=== PATIENT | female | born 1955 | race American Indian/Alaskan Native ===

== ENCOUNTER 2018-02-08 01:16 | Inpatient (IN) | payer OTHER ==
[~2018-02-08] VITALS: Ht 165.1 cm; Wt 95.1 kg
[2018-02-08 01:28] VITALS: Ht 165.1 cm; Wt 95.1 kg
[2018-02-08 02:36] LABS: UA SPECIFIC GRAVITY >=1.030 (1.005-1.035); microscopic required? YES; urine erythrocyte NEGATIVE (NEGATIVE)
[2018-02-08 03:02] LABS: PLATELET COUNT 258 x10^3mcL (130-400)
[2018-02-08 03:16] LABS: RED CELL DISTRIBUTION WIDTH 22.1 % (11.5-14.5)
[2018-02-08 03:27] LABS: T3 TOTAL 0.55 ng/mL
[2018-02-08 03:48] LABS: ERYTHROCYTE SED RATE 8 mm/hr (0-30)
[2018-02-08 04:15] LABS: BAND NEUTROPHIL 3 % (0-10); METAMYELOCTE 1 % (0-2); MONOCYTE 10 % (0-7); MYELOCYTE 1 % (0-2); SEGMENTED NEUTROPHILS 80 % (37-75); rbc morphology (normal/abnorm) ABNORMAL (NORMAL)
[2018-02-08 04:16] LABS: PLATELET MORPHOLOGY LARGE PLATELET SEEN; ovalocyte/elliptocyte 1+; target cell (codocyte) 2+
[2018-02-08 04:42] LABS: CK-MB 1.4 ng/mL (0-3.6)
[2018-02-08 05:14] LABS: C REACTIVE PROTEIN 6.9 mg/dL (<=0.9)
[2018-02-08 05:32] LABS: CALCIUM 8.9 mg/dL (8.5-10.1); CARBON DIOXIDE 21.3 mmol/L (21-32); CREATININE SERUM 2.7 mg/dL (0.6-1.0); FREE T4 1.53 ng/dL (0.76-1.46)
[2018-02-08] MEDS ORDERED: DOXEPIN HCL10 MG PO (05:37)
[2018-02-08] MEDS ORDERED: PANTOPRAZOLE SO40 M1 PO (05:37)
[2018-02-08] MEDS ORDERED: ACETAMINOPHEN A1 TAB PO (05:38)
[2018-02-08] MEDS ORDERED: GAS RELIEF 8080 MG PO (05:38)
[2018-02-08] MEDS ORDERED: CALCIUM 600600 M3 PO (05:39)
[2018-02-08 05:40] LABS: ALBUMIN 2.4 g/dL (3.4-5.0); TOTAL PROTEIN, SERUM 5.2 g/dL (6.4-8.2)
[2018-02-08 05:41] LABS: BILIRUBIN TOTAL 16.1 mg/dL (0.20-1.00)
[2018-02-08] MEDS ORDERED: QUEP PO (05:41)
[2018-02-08] MEDS ORDERED: LACTULOSE10 GM/152 PO (05:41)
[2018-02-08] MEDS ORDERED: LEVAQUIN750 MG PO (05:42)
[2018-02-08] MEDS ORDERED: ALDACTONE50 MG PO (05:42)
[2018-02-08] MEDS ORDERED: PROPRANOLOL HCL20 MG PO (05:42)
[2018-02-08] MEDS ORDERED: ONDANSETRON4 M3 PO (05:43)
[2018-02-08] MEDS ORDERED: HYDROXYZINE HYD25 MG PO (05:44)
[2018-02-08 06:50] VITALS: BP 119/43
[2018-02-08 09:53] LABS: CALCIUM 9.7 mg/dL (8.5-10.1); CARBON DIOXIDE 22.6 mmol/L (21-32); CREATININE SERUM 2.5 mg/dL (0.6-1.0)
[2018-02-08 09:58] LABS: POTASSIUM SERUM 6.8 mmol/L (3.5-5.1)
[2018-02-08 10:08] VITALS: BP 120/36
[2018-02-08 12:05] VITALS: BP 104/35
[2018-02-08 16:28] VITALS: BP 94/41
[2018-02-08 17:28] VITALS: BP 114/50
[2018-02-08 20:00] VITALS: BP 111/55
[2018-02-08 21:31] LABS: CALCIUM 10.4 mg/dL (8.5-10.1); CARBON DIOXIDE 18.7 mmol/L (21-32); CREATININE SERUM 2.6 mg/dL (0.6-1.0)
[2018-02-08 21:33] LABS: POTASSIUM SERUM 6.4 mmol/L (3.5-5.1)
[2018-02-09] VITALS (8 sets, daily range): BP systolic 93–115; BP diastolic 45–65
[2018-02-09 06:39] LABS: CALCIUM 9.8 mg/dL (8.5-10.1); CARBON DIOXIDE 17.6 mmol/L (21-32); CREATININE SERUM 2.6 mg/dL (0.6-1.0); MAGNESIUM 2.8 mg/dL (1.8-2.4); PHOSPHOROUS 3.9 mg/dL (2.5-4.9)
[2018-02-09 06:45] LABS: POTASSIUM SERUM 6.3 mmol/L (3.5-5.1)
[2018-02-10 05:22] VITALS: BP 118/49
[2018-02-10 07:07] LABS: CALCIUM 8.8 mg/dL (8.5-10.1); CARBON DIOXIDE 17.7 mmol/L (21-32); CREATININE SERUM 1.9 mg/dL (0.6-1.0); POTASSIUM SERUM 4.6 mmol/L (3.5-5.1)
[2018-02-10 07:28] LABS: PLATELET COUNT 139 x10^3mcL (130-400)
[2018-02-10 09:14] VITALS: BP 120/57
[2018-02-10 10:21] LABS: ATYPICAL LYMPH 1 %; BAND NEUTROPHIL 2 % (0-10); BASOPHIL 0 % (0-2); MONOCYTE 4 % (0-7); SEGMENTED NEUTROPHILS 90 % (37-75)
[2018-02-10 10:22] LABS: rbc morphology (normal/abnorm) ABNORMAL (NORMAL)
[2018-02-10 10:23] LABS: PLATELET MORPHOLOGY PLATELETS DECREASED
[2018-02-10 12:31] VITALS: BP 123/59
[2018-02-10 17:01] VITALS: BP 118/55
[2018-02-10 20:43] VITALS: BP 113/53
[2018-02-11 05:53] VITALS: BP 115/57
[2018-02-11 06:45] LABS: CALCIUM 8.7 mg/dL (8.5-10.1); CARBON DIOXIDE 16.2 mmol/L (21-32); CREATININE SERUM 1.3 mg/dL (0.6-1.0); POTASSIUM SERUM 4.3 mmol/L (3.5-5.1)
[2018-02-11 06:54] LABS: PLATELET COUNT 137 x10^3mcL (130-400)
[2018-02-11 06:55] LABS: RED CELL DISTRIBUTION WIDTH 24.1 % (11.5-14.5)
[2018-02-11 09:30] VITALS: BP 109/53
[2018-02-11 09:30] LABS: BAND NEUTROPHIL 8 % (0-10); BASOPHIL 0 % (0-2); MONOCYTE 8 % (0-7); SEGMENTED NEUTROPHILS 75 % (37-75); rbc morphology (normal/abnorm) ABNORMAL (NORMAL)
[2018-02-11 09:31] LABS: ovalocyte/elliptocyte 1+; target cell (codocyte) 1+; tear drop cell (dacryocyte) 1+
[2018-02-11 09:33] LABS: PLATELET MORPHOLOGY PLATELETS DECREASED
[2018-02-11 11:07] LABS: ALBUMIN 3.6 g/dL (3.4-5.0); BILIRUBIN DIRECT 11.73 mg/dL (0.0-0.2); TOTAL PROTEIN, SERUM 5.8 g/dL (6.4-8.2)
[2018-02-11 11:09] LABS: BILIRUBIN TOTAL 18.19 mg/dL (0.20-1.00)
[2018-02-11 12:48] VITALS: BP 107/72; BP 127/59
[2018-02-11 14:35] LABS: APPEARANCE FLUID CLEAR; COLOR FLUID YELLOW; RBC FLUID 288 /cumm; SOURCE FLUID ASCITIC FLUID; WBC FLUID 70 /cumm
[2018-02-11 15:14] LABS: LYMPHOCYTE FLUID 82 %; MONOCYTE FLUID 0 %
[2018-02-11 16:36] VITALS: BP 124/53
[2018-02-11 20:33] VITALS: BP 111/54
[2018-02-12 05:28] VITALS: BP 105/55
[2018-02-12 07:09] LABS: PLATELET COUNT 126 x10^3mcL (130-400); RED CELL DISTRIBUTION WIDTH 24.6 % (11.5-14.5)
[2018-02-12 07:12] LABS: CALCIUM 8.7 mg/dL (8.5-10.1); CARBON DIOXIDE 20.9 mmol/L (21-32); CREATININE SERUM 1.3 mg/dL (0.6-1.0); POTASSIUM SERUM 3.9 mmol/L (3.5-5.1)
[2018-02-12 08:44] VITALS: BP 144/71
[2018-02-12 09:56] VITALS: BP 114/60
[2018-02-12 11:54] VITALS: BP 121/59
[2018-02-12 12:56] LABS: BAND NEUTROPHIL 13 % (0-10); MONOCYTE 6 % (0-7); SEGMENTED NEUTROPHILS 70 % (37-75)
[2018-02-12 12:58] LABS: METAMYELOCTE 2 % (0-2); MYELOCYTE 2 % (0-2); rbc morphology (normal/abnorm) ABNORMAL (NORMAL)
[2018-02-12 12:59] LABS: PLATELET MORPHOLOGY PLT CLUMPS SEEN; ovalocyte/elliptocyte 1+; target cell (codocyte) 1+
[2018-02-12 16:45] VITALS: BP 130/63
[2018-02-12 20:47] VITALS: BP 125/63
[2018-02-13 05:02] VITALS: BP 124/63
[2018-02-13 07:01] LABS: CALCIUM 8.8 mg/dL (8.5-10.1); CARBON DIOXIDE 17.1 mmol/L (21-32); CREATININE SERUM 1.1 mg/dL (0.6-1.0); POTASSIUM SERUM 3.5 mmol/L (3.5-5.1)
[2018-02-13 07:05] LABS: ALBUMIN 2.8 g/dL (3.4-5.0); TOTAL PROTEIN, SERUM 5.6 g/dL (6.4-8.2)
[2018-02-13 07:08] LABS: BILIRUBIN TOTAL 25.9 mg/dL (0.20-1.00)
[2018-02-13 07:20] LABS: PLATELET COUNT 115 x10^3mcL (130-400); RED CELL DISTRIBUTION WIDTH 24.1 % (11.5-14.5)
[2018-02-13 09:47] VITALS: BP 106/56
[2018-02-13 11:33] LABS: ATYPICAL LYMPH 5 %; BAND NEUTROPHIL 4 % (0-10); BASOPHIL 0 % (0-2); MONOCYTE 14 % (0-7); SEGMENTED NEUTROPHILS 74 % (37-75)
[2018-02-13 11:36] LABS: rbc morphology (normal/abnorm) ABNORMAL (NORMAL)
[2018-02-13 11:37] LABS: PLATELET MORPHOLOGY PLATELETS DECREASED
[2018-02-13 12:40] VITALS: BP 105/48
[2018-02-13 15:47] VITALS: BP 126/61
[2018-02-13 21:06] VITALS: BP 109/51
[2018-02-14 05:55] VITALS: BP 96/45
[2018-02-14 09:20] VITALS: BP 84/35
[2018-02-14 10:51] LABS: CALCIUM 9.1 mg/dL (8.5-10.1); CARBON DIOXIDE 10.7 mmol/L (21-32)
[2018-02-14 10:52] LABS: ALBUMIN 2.4 g/dL (3.4-5.0); TOTAL PROTEIN, SERUM 4.8 g/dL (6.4-8.2)
[2018-02-14 10:54] LABS: BILIRUBIN TOTAL 23.19 mg/dL (0.20-1.00)
[2018-02-14 11:06] LABS: PLATELET COUNT 96 x10^3mcL (130-400); RED CELL DISTRIBUTION WIDTH 26.6 % (11.5-14.5)
[2018-02-14 11:51] LABS: BAND NEUTROPHIL 6 % (0-10); BASOPHIL 0 % (0-2); MONOCYTE 12 % (0-7); SEGMENTED NEUTROPHILS 80 % (37-75); rbc morphology (normal/abnorm) ABNORMAL (NORMAL)
[2018-02-14 11:52] LABS: burr cell (echinocyte) 1+; ovalocyte/elliptocyte 1+; target cell (codocyte) 1+
[2018-02-14 11:53] LABS: PLATELET MORPHOLOGY PLATELETS DECREASED
[2018-02-14 12:23] VITALS: BP 101/55
== END 2018-02-14 20:03 | disposition expired | DRG 871 ==
LOC: ED 01:16 → DU 05:43
PROVIDERS: Internal Medicine; Internal Medicine Gastroenterology; Internal Medicine Nephrology; Specialist
DX: A41.9 Sepsis, unspecified organism (principal); G93.41 Metabolic encephalopathy; K72.91 Hepatic failure, unspecified with coma; J96.01 Acute respiratory failure with hypoxia; R65.21 Severe sepsis with septic shock; I81 Portal vein thrombosis; J69.0 Pneumonitis due to inhalation of food and vomit; N17.9 Acute kidney failure, unspecified; C22.0 Liver cell carcinoma; R18.8 Other ascites; E11.22 Type 2 diabetes mellitus with diabetic chronic kidney disease; D64.9 Anemia, unspecified; Z51.5 Encounter for palliative care; D69.6 Thrombocytopenia, unspecified; D89.9 Disorder involving the immune mechanism, unspecified; I46.9 Cardiac arrest, cause unspecified; B19.20 Unspecified viral hepatitis C without hepatic coma; K74.60 Unspecified cirrhosis of liver; Z90.49 Acquired absence of other specified parts of digestive tract; E87.5 Hyperkalemia; E86.0 Dehydration; Z85.05 Personal history of malignant neoplasm of liver; N18.9 Chronic kidney disease, unspecified; Z85.3 Personal history of malignant neoplasm of breast; Z85.528 Personal history of other malignant neoplasm of kidney; Z90.5 Acquired absence of kidney; E03.9 Hypothyroidism, unspecified; E11.649 Type 2 diabetes mellitus with hypoglycemia without coma; Z88.0 Allergy status to penicillin
CPT/HCPCS: 36600; 82962; 84439; 94150; B4164; C9113; J1940; J1956; J2270; J2354; J3430; J3490; J7030; J7050; J7070; J7620; P9047; Q0092; Q0162